=== PATIENT | female | born 1940 | race Caucasian/White ===

== ENCOUNTER 2021-03-19 17:25 | Inpatient (IN) ==
--- NOTE | 2021-03-19 22:56 | Communication Note ---
Date of Service: March 19, 2021 Patient was a direct admission from [facility] this evening. Upon evaluation by night team, patient has a history of ESRD on MWF hemodialysis - she had a left upper arm vascular access graft that clotted off today while at [facility]. Consequently she missed her routine dialysis session today. [facility] only has in-house dialysis capabilities two days per week - because services would not be available on Friday03/20/21 (tomorrow) - she was transferred to [facility] for dialysis capabilities. Night team contacted on-call reinsurance claim analyst, Dr. Gautam Schrader, who confirmed patient would need either her left arm graft repaired or a permacath placed in order to be dialyzed. However, night team discovered Dr. Omalley (vascular surgery) is out-of-town this week. General Surgery PA Kai Valiente was contacted regarding patient - he reported the on-call general surgeon, Dr. Myles, does not place permacaths. Dr. Schrader recommend the patient be transferred to a facility with an in-house vascular surgeon, as she will need vascular access established in the short-term in order to be dialyzed. Fortunately, patient's BMP drawn today from [facility] prior to transfer indicated she had a potassium level of 4.0 - emergent dialysis not indicated. [facility] was contacted for transfer - they accepted patient.
[2021-03-20] MEDS ORDERED: ONDANSETRON INJ 2 MG/ML 2 ML VIAL IV PRN (04:44)
--- NOTE | 2021-03-20 05:06 | History & Physical Report ---
Date of Service March 20, 2021 Assessment & Plan (1) Complication of vascular graft: Mrs. Cleary is an 80 yo woman with ESRD on HD who missed yesterday's dialysis session due to a clotted vascular access graft. She is awaiting transfer to [facility] for in-house vascular surgery service and hemodialysis. - left upper arm graft clotted 03/19/21 - patient currently has no access for dialysis - awaiting transfer to [facility] - if patient does not have a bed available shortly - consider consulting steam train driver to place a temporary dialysis catheter (although she cannot leave our hospital wiht this in place, it would allow for her to be dialzyed in the short term). (2) ESRD (end stage renal disease) on dialysis: - MWF hemodialysis - Friday session missed - anticipate need for dialysis in short-term, yet patient currently does not hav e vascular access - check BMP to assess K level (3) Type II diabetes mellitus: - HbA1c drawn at [facility] 7.1 - at goal - blood sugar checks ACHS - continue glargine 16 units hs (4) Clostridium difficile diarrhea: - patient tested positive for toxin at [facility] - continue oral vancomycin - contact precautinons (5) Anemia: - history of chronic, macrocytic anemia - B12 and folate checked at [facility] and were normal - thought to be secondary to ESRD - continue epogen Dispo: Med surg with tele while awaiting transport to [facility] Diet: Dialysis Code: DNR/DNI Admission and Anticipated Discharge Date Admission Date: March 19, 2021 History of Present Illness Primary Care Provider: NO PCP Mrs. Cleary is an 80 yo woman with a PMHx of end stage renal disease on MWF hemodialysis, type II diabetes mellitus and a current Cdiff infection who was a direct admission from [facility] on the evening of 03/19/21. She was admitted at [facility] on 03/14/21 for her Cdiff infection - she was being treated with oral vancomycin. Unfortunately, her left upper arm vascular fistula for dialysis was found to be clotted off yesterday - thus she missed her routine Friday dialysis session. [facility] only has in-house dialysis capabilities two days per week - because services would not be available on Friday - thus she was transferred to [facility] for dialysis capabilities along with vacular surgery (for graft repair). Night team contacted on-call managing member, Dr. Gautam Schrader, who confirmed patient would need either her left arm graft repaired or a permacath placed in order to be dialyzed. However, it was learned well-after she was accepted to [facility] that Dr. Omalley was out-of-town this week. General Surgery PA Kai Valiente was contacted regarding patient - he reported the on-call general surgeon, Dr. Myles, does not place permacaths. Dr. Schrader recommend the patient be transferred to a facility with an in-house vascular surgeon, as she will need vascular access established in the short-term in order to be dialyzed. Fortunately, patient's BMP drawn today from [facility] prior to transfer indicated she had a potassium level of 4.0 - emergent dialysis not indicated. [facility]. Given the delay of awaiting bed availability at [facility] - she was formally admitted to [facility] for monitoring. Labs from [facility] on 03/19/21: WBC normal. Hgb 8.9, MCV 101. Cr 7.8, Bun 42. K 4.0. HbA1c 7.1. Allergies Allergy/AdvReac Type Severity Reaction Status Date / Time latex Allergy Severe Blister Verified 03/20/21 05:05 Penicillins Allergy Severe Swelling/Hi Verified 03/20/21 05:05 ves Home Medications Medication Instructions Recorded Confirmed Type atorvastatin 40 mg PO HS #30 tab 03/19/21 03/20/21 Rx acetaminophen 650 mg PO Q6H PRN 03/20/21 03/20/21 History calcium acetate(phosphat bind) mg 03/20/21 History cinacalcet 3XWK 03/20/21 History ergocalciferol (vitamin D2) 1 unit PO WK 03/20/21 03/20/21 History famotidine 20 mg PO DAILY 03/20/21 03/20/21 History insulin aspart U-100 [Novolog 6 unit SUBCUT QAM 03/20/21 03/20/21 History Flexpen U-100 Insulin] insulin glargine 16 unit SUBCUT HS 03/20/21 03/20/21 History metoprolol succinate 50 mg PO BID 03/20/21 03/20/21 History Past Med/Surg History Medical History (Updated 06/22/21 @ 05:26 by Julee Mosley MD) Anemia Social History Smoking Status: Never smoker Second Hand Exposure: No; Do You Dip or Chew Tobacco: No; Tobacco Cessation Education Requested by Patient: No Hx Alcohol Use: No Hx Substance Use: No Preferred Language: Mohawk Communication Ability: Effective Phone Operator Required: No Beliefs That Will Affect Care: None Current Living Situation: Family Current Living Situation Comment: Lives with sister Other Information That Helps Us Care for You: No Feels Safe at Home: Yes Assistive Devices: None Review of Systems Gastrointestinal: + diarrhea/loose stools Physical Exam Constitutional: WD/WN, vitals as above cooperative; no acute distress Eyes: + anicteric sclerae ENMT: external ear and nose normal, oropharynx normal Neck: normal visual inspection and trachea midline Respiratory: normal respiratory effort, lungs clear to auscultation Cardiovascular: Rate/Rhythm: regular rate and regular rhythm Heart Sounds: normal S1 and normal S2 Extremities: + vascular access device (left upper arm ) Chest (Breasts): Additional Comments: Wound on R upper chest - site of previous port (removed on 03/01/21) Gastrointestinal (Abdomen): normal bowel sounds, soft, nontender, no hepatosplenomegaly Skin: no rashes, warm and dry Neurologic: moves all extremities Psychiatric: A+Ox3, euthymic affect Results & Data Results & Data ([facility]) Vital Signs (Past 12 Hours) Vital Signs Temp Pulse Resp BP Pulse Ox 03/19/21 22:42 36.5 C 71 18 192/82 H 98 03/19/21 20:08 36.7 C 20 96 03/19/21 19:45 36.7 C 69 16 198/80 H 96 Supervising Physician Co-Signing Physician Notes Attending addendum: I have physically seen this patient, have supervised the medical residents activities, and agree with the H&P unless as otherwise noted. Assessment and Plan: ESRD on HD/lacking vascular access- Patient had been accepted in transfer to [facility] by the daytime physician risk management professional due to need for dialysis. Unbeknownst to the accepting physician at that time, vascular surgery is not available this week at [facility]. Therefore, patient would not be able to have vascular access obtained, and therefore would not be able to undergo hemodialysis at this facility. The patient is being transferred to [facility], having been accepted there , and waiting for a bed availability at this time. In the interim, patient will be admitted in observation mode, until transfer can be completed. Resident Activity Tracking Resident Involvement: Resident Care Provided Care Provided: Adult Hospital Medicine
--- NOTE | 2021-03-20 07:23 | Discharge Summary ---
Date of Service March 20, 2021 Admission HPI Per Admitting Provider Mrs. Cleary is an 80 yo woman with a PMHx of end stage renal disease on MWF hemodialysis, type II diabetes mellitus and a current Cdiff infection who was a direct admission from [facility] on the evening of 03/19/21. She was admitted at [facility] on 03/14/21 for her Cdiff infection - she was being treated with oral vancomycin. Unfortunately, her left upper arm vascular fistula for dialysis was found to be clotted off yesterday - thus she missed her routine Friday dialysis session. [facility] only has in-house dialysis capabilities two days per week - because services would not be available on Friday - thus she was transferred to [facility] for dialysis capabilities along with vacular surgery (for graft repair). Night team contacted on-call licensed veterinary technician, Dr. Gautam Schrader, who confirmed patient would need either her left arm graft repaired or a permacath placed in order to be dialyzed. However, it was learned well-after she was accepted to [facility] that Dr. Omalley was out-of-town this week. General Surgery PITO Valiente was contacted regarding patient - he reported the on-call general surgeon, Dr. Myles, does not place permacaths. Dr. Schrader recommend the patient be transferred to a facility with an in-house vascular surgeon, as she will need vascular access established in the short-term in order to be dialyzed. Fortunately, patient's BMP drawn today from [facility] prior to transfer indicated she had a potassium level of 4.0 - emergent dialysis not indicated. [facility] was contacted for transfer - they accepted patient. Given the delay of awaiting bed availability at [facility] - she was formally admitted to [facility] for monitoring. Labs from [facility] on 03/19/21: WBC normal. Hgb 8.9, MCV 101. Cr 7.8, Bun 42. K 4.0. HbA1c 7.1. Admission Exam Per Admitting Provider Constitutional: WD/WN, vitals as above cooperative; no acute distress Eyes: + anicteric sclerae ENMT: external ear and nose normal, oropharynx normal Neck: normal visual inspection and trachea midline Respiratory: normal respiratory effort, lungs clear to auscultation Cardiovascular: Rate/Rhythm: regular rate and regular rhythm Heart Sounds: normal S1 and normal S2 Extremities: + vascular access device (left upper arm ) Chest (Breasts): Additional Comments: Wound on R upper chest - site of previous port (removed on 03/01/21) Gastrointestinal (Abdomen): normal bowel sounds, soft, nontender, no hepatosplenomegaly Skin: no rashes, warm and dry Neurologic: moves all extremities Psychiatric: A+Ox3, euthymic affect Principal Diagnosis ESRD on HD, requiring HD Discharge Exam Constitutional WD/WN, vitals as above cooperative; no acute distress Eyes + anicteric sclerae ENMT external ear and nose normal, oropharynx normal Neck normal visual inspection and trachea midline Respiratory normal respiratory effort, lungs clear to auscultation Cardiovascular Rate/Rhythm: regular rate and regular rhythm Heart Sounds: normal S1 and normal S2 Extremities: + vascular access device (left upper arm ) Gastrointestinal (Abdomen) normal bowel sounds, soft, nontender, no hepatosplenomegaly Musculoskeletal Head/Neck/Chest: normocephalic and head atraumatic Skin no rashes, warm and dry Neurologic moves all extremities Psychiatric A+Ox3, euthymic affect Discharge Data Allergies Allergy/AdvReac Type Severity Reaction Status Date / Time latex Allergy Severe Blister Verified 03/20/21 05:05 Penicillins Allergy Severe Swelling/Hi Verified 03/20/21 05:05 ves Hospital Course (1) Complication of vascular graft: Mrs. Cleary is an 80 yo woman with ESRD on HD who missed yesterday's dialysis session due to a clotted vascular access graft. She is awaiting transfer to [facility] for in-house vascular surgery service and hemodialysis. - left upper arm graft clotted 03/19/21 - patient currently has no access for dialysis - awaiting transfer to [facility] - if patient does not have a bed available shortly - consider consulting air conditioning equipment mechanic to place a temporary dialysis catheter (although she cannot leave our hospital wiht this in place, it would allow for her to be dialzyed in the short term). (2) ESRD (end stage renal disease) on dialysis: - MWF hemodialysis - Friday session missed - anticipate need for dialysis in short-term, yet patient currently does not have vascular access - check BMP to assess K level (3) Type II diabetes mellitus: - HbA1c drawn at [facility] 7.1 - at goal - blood sugar checks ACHS - continue glargine 16 units hs (4) Clostridium difficile diarrhea: - patient tested positive for toxin at [facility] - continue oral vancomycin - contact precautinons (5) Anemia: - history of chronic, macrocytic anemia - B12 and folate checked at [facility] and were normal - thought to be secondary to ESRD - continue epogen Dispo: Transport to [facility] Diet: Dialysis Code: DNR/DNI Total Time Total Time Spent Total Time Spent (In Minutes): <30 Discharge Plan Discharge Items Patient Disposition: Transfer Acute Care Hospital Reason For Visit: ESRD/CDIFF Discharge Diagnosis: End Stage Renal Disease on HD Activity: Resume your previous activity Non-emergency contact: Primary Care Provider Call non-emergency contact if: you have any medication questions Follow-up/Referrals: PCP,NO [Primary Care Provider] - Diet: Dialysis Renal Addtl Attending Provider Instructions: Patient arrived at [facility] as a direct admit from [facility]. Due to our facility not having vascular surgery in-house at this time she was transferred to [facility]. Pending Studies at Discharge: No Stand-Alone Forms: My [facility] Skilled Items Patient informed of condition?: Yes DNR: Yes Discharge Level of Care: Other Communicable Disease: Yes Discharge Prognosis: Stable Lines: None Urinary Catheter: No Medications and DC Order Prescriptions: New atorvastatin 40 mg tablet 40 mg PO HS Qty: 30 RF: 0 Continued metoprolol succinate 50 mg Tablet Extended Release 24 Hr 50 mg PO BID RF: 0 acetaminophen 650 mg Tablet 650 mg PO Q6H PRN (Reason: Pain) RF: 0 ergocalciferol (vitamin D2) 50,000 unit Tablet 1 unit PO WK RF: 0 famotidine 20 mg Tablet 20 mg PO DAILY RF: 0 insulin aspart U-100 [Novolog Flexpen U-100 Insulin] 100 unit/mL (3 mL) insulin pen 6 unit SUBCUT QAM RF: 0 calcium acetate(phosphat bind) 667 mg capsule RF: 0 cinacalcet 3XWK RF: 0 insulin glargine 100 unit/mL Cartridge 16 unit SUBCUT HS RF: 0 Discharge Orders: Discharge Order (Routine); Ordered 03/19/21 Ordered By: Julee Mosley Admission Data Admit Date/Time: 03/20/21 04:44 Attending Provider: Navid Thao Admit Provider: Navid Thao Primary Care Provider: PCP,NO Other Interventions: Discharge Summary Assessment (RN) Last Done: 03/20/21 07:09 Supervising Physician Co-Signing Physician Notes chart reviewed, pt not able to be seen - was transferred prior to my being able to see her. agree w above. Resident Activity Tracking Resident Involvement: Resident Care Provided Care Provided: Adult Hospital Medicine
--- NOTE | 2021-03-21 23:01 | Billing Data ---
Date of Service March 21, 2021 Coding Level of Care Code 54049 OBS Care - Level 3
== END 2021-03-20 07:20 | disposition short-term general hospital (02) | DRG 699 ==
LOC: 3W 19:49